=== PATIENT | female | born 1990 | race Caucasian/White ===

== ENCOUNTER 2017-03-26 21:40 | Emergency (ER) | payer OTHER, MEDICAID ==
[~2017-03-26] VITALS: Ht 165.1 cm; Wt 86.2 kg
[~2017-03-26 21:40] MED LIST: ACCUNEB SO1.25 MG/1 INH; AMOXICILLIN 50500 MG PO; BP; IBUPROFEN 800800 MG PO; KEFLEX500 MG PO; LEVOTHYROXINE0.05 MG PO; NORCO 5-325 TA1 EACH PO
[2017-03-26 23:11] VITALS: BP 150/88
== END 2017-03-26 23:14 | disposition still patient (30) ==
LOC: M.ERS 21:40
DX: S80.02XA Contusion of left knee, initial encounter (principal); S80.01XA Contusion of right knee, initial encounter; S60.221A Contusion of right hand, initial encounter; I10 Essential (primary) hypertension; J45.909 Unspecified asthma, uncomplicated; E03.9 Hypothyroidism, unspecified; Z88.5 Allergy status to narcotic agent; Z88.8 Allergy status to other drugs, medicaments and biological substances; F17.200 Nicotine dependence, unspecified, uncomplicated; W18.39XA Other fall on same level, initial encounter; Y93.89 Activity, other specified; Y92.89 Other specified places as the place of occurrence of the external cause; Y99.8 Other external cause status

== ENCOUNTER 2017-06-21 20:06 | Emergency (ER) | payer OTHER, MEDICAID ==
[~2017-06-21] VITALS: Ht 165.1 cm; Wt 84.4 kg
[2017-06-21] MEDS ORDERED: LOPRESSOR25 PO (20:22)
[2017-06-21 20:56] LABS: INFLUENZA A ANTIGEN None Detected (None Detect); INFLUENZA B ANTIGEN None Detected (None Detect)
[2017-06-21] MEDS ORDERED: PREDNISONE 20 M20 MG PO (21:13)
[2017-06-21] MEDS ORDERED: VENTOLIN HFA 1818 GM INH (21:13)
[2017-06-21] MEDS ORDERED: TESSALON PERLE100 MG PO (21:13)
[2017-06-21 21:19] VITALS: BP 168/111
== END 2017-06-21 21:20 | disposition home or self-care (01) ==
LOC: M.ERS 20:06
PROVIDERS: Physician Assistant
DX: J06.9 Acute upper respiratory infection, unspecified (principal); J45.909 Unspecified asthma, uncomplicated; E03.9 Hypothyroidism, unspecified; I10 Essential (primary) hypertension; F17.200 Nicotine dependence, unspecified, uncomplicated; Z88.5 Allergy status to narcotic agent; Z88.8 Allergy status to other drugs, medicaments and biological substances

== ENCOUNTER 2018-06-07 09:12 | Emergency (ER) | payer BC, OTHER, MEDICAID ==
[~2018-06-07] VITALS: Ht 165.1 cm; Wt 85.7 kg
[~2018-06-07 09:12] MED LIST changes: +LOPRESSOR25 PO; +PREDNISONE 20 M20 MG PO; +TESSALON PERLE100 MG PO; +VENTOLIN HFA 1818 GM INH
[2018-06-07] MEDS ORDERED: LEVOXYL75 MCG PO (09:25)
[2018-06-07] MEDS ORDERED: PRINIVIL10 MG PO (09:25)
[2018-06-07 09:45] LABS: URINE BLOOD NEGATIVE (Negative); URINE CLARITY CLEAR; URINE COLOR YELLOW; URINE GLUCOSE-RANDOM NEGATIVE (Negative); URINE KETONES 1+ (Negative); URINE LEUKOCYTES-REFLEX NEGATIVE (Negative); URINE NITRITE-REFLEX NEGATIVE (Negative); URINE PROTEIN NEGATIVE (Negative); URINE SPECIFIC GRAVITY >= 1.030 (1.005-1.030)
[2018-06-07 09:46] LABS: ICTOTEST (BILI CONFIRMATORY) Negative (Negative); URINE BILIRUBIN 1+ (Negative)
[2018-06-07 09:51] LABS: ABSOLUTE LYMPHOCYTES 1.2 thou/uL (0.8-5.3); ABSOLUTE MONOCYTES 0.8 thou/uL (0.0-1.2); ABSOLUTE NEUTROPHILS 3.2 thou/uL (1.6-8.1); BASOPHILS 0.3 %; EOSINOPHILS 0.5 %; HEMATOCRIT 36.6 % (37.0-47.0); HEMOGLOBIN 11.9 gm/dL (12.0-15.0); LYMPHOCYTES 22.5 %; MCH 25.1 pg (26.0-34.0); MCHC 32.5 g/dL (28.0-37.0); MCV 77.1 fL (80.0-100.0); MPV 9.5 fl. (7.2-11.1); NUCLEATED RBCS 0 /100WBC; PLATELET COUNT* 226 thou/uL (150-400); POLYS 61.7 %; RBC 4.74 mil/uL (4.20-5.00); RDW-CV 14.9 % (10.5-14.5); WBC 5.2 thou/uL (4.0-11.0)
[2018-06-07 09:53] LABS: ALBUMIN 3.4 g/dL (3.4-5.0); CALCIUM 8.1 mg/dL (8.5-10.1); CREATININE 0.9 mg/dL (0.6-1.3); POTASSIUM 3.4 mmol/L (3.5-5.1); TOTAL BILIRUBIN 0.9 mg/dL (<0.1-1.0); TOTAL PROTEIN 7.3 g/dL (6.4-8.2)
[2018-06-07] MEDS ORDERED: ZOFRAN ODT4 MG PO (10:06)
[2018-06-07 10:15] VITALS: BP 119/57
== END 2018-06-07 10:17 | disposition home or self-care (01) ==
LOC: M.ERS 09:12
PROVIDERS: Emergency Medicine
DX: R19.7 Diarrhea, unspecified (principal); M54.5 Low back pain; R50.9 Fever, unspecified; I10 Essential (primary) hypertension; J45.909 Unspecified asthma, uncomplicated; E03.9 Hypothyroidism, unspecified; Z88.5 Allergy status to narcotic agent; Z88.8 Allergy status to other drugs, medicaments and biological substances